=== PATIENT | male | born 1980 | race Caucasian/White ===

== ENCOUNTER 2025-07-14 06:06 | Day surgery (SDC) | payer BC ==
[2025-07-14] MEDS: Ringers Lactate 1,000 ML IV ONE (06:50)
[2025-07-14] MEDS ORDERED: GLYCOPYRROLATE 0.2 MG/ML SYR ONE ×2 (07:46→09:09)
[2025-07-14] MEDS ORDERED: ROCURONIUM 50 MG/5 ML VIAL IV ONE (07:46)
[2025-07-14] MEDS ORDERED: ONDANSETRON 4 MG/2 ML VIAL ONE (07:46)
[2025-07-14] MEDS ORDERED: LIDOCAINE 1% MPF 5 ML VIAL ONE (07:46)
[2025-07-14 07:47] LABS: Absolute Lymphocytes (CBC) 2.6 K/uL (0.7-4.9); Hematocrit 43.4 % (39.6-49.0); Hemoglobin 15.0 g/dL (13.6-17.9); MCH 30.4 pg (27.0-35.0); MCHC 34.6 g/dL (32.0-36.0); MCV 88.0 fL (80-100); MPV 7.7 fL (7.6-11.3); Nucleated RBC Absolute Count 0.0 (0-0); Nucleated Red Blood Cells % 0.1 % (0-0); RBC Red Blood Cell Count 4.94 M/uL (4.33-5.43); White Blood Count 8.40 thou/uL (4.3-10.9)
[2025-07-14] MEDS ORDERED: FENTANYL CITR 100 MCG/2 ML ONE (07:47)
[2025-07-14] MEDS ORDERED: MIDAZOLAM HCL 2 MG/2 ML INJ ONE (07:47)
--- NOTE | 2025-07-14 08:01 | RAD REPORT ---
EXAMINATION: TWO VIEW CHEST XR CLINICAL INDICATION: PRE-OP TECHNIQUE: 2 views of the chest was performed. COMPARISON: No prior exam. FINDINGS: The lungs are well inflated and clear. The heart is normal in size. No displaced fractures evident. IMPRESSION: No acute or significant abnormalities.
[2025-07-14 08:06] LABS: ALT/SGPT 400 U/L (16-61); AST/SGOT 141 U/L (15-37); Albumin 3.3 g/dL (3.4-5.0); Albumin/Globulin Ratio 0.9 (1.1-1.8); Alkaline Phosphatase 133 U/L (45-117); Anion Gap 8.9 mEq/L (5.0-15.0); BUN Blood Urea Nitrogen 19 mg/dL (7-18); Bilirubin Indirect, Calculated 0.1 mg/dL (0.2-0.8); Globulin 3.5 g/dL (2.3-3.5); Glucose Level 101 mg/dL (74-106); Lipase 63 U/L (13-75); Potassium 3.9 mEq/L (3.5-5.1)
[2025-07-14] MEDS: CEFOXITIN SODIUM 1 GM/VIAL ONE (08:10)
[2025-07-14] MEDS ORDERED: KETOROLAC 30 MG/ML INJ ONE (08:49)
[2025-07-14] MEDS ORDERED: NEOSTIGMINE 1 MG/ML -10 ML VIAL ONE (09:09)
[2025-07-14] MEDS ORDERED: MORPHINE 10 MG/ML VIAL ONE (09:22)
[2025-07-14] MEDS: HYDROMORPHONE HCL 1 MG/ML INJ ONE (09:54)
--- NOTE | 2025-07-14 10:16 | OP ---
Date of Procedure: 07/14/2025 Surgeon: Abilio Anaya MD Preoperative Diagnoses: Acute cholecystitis, symptomatic cholelithiasis, hepatic disease, umbilical hernia. Postoperative Diagnoses: Acute cholecystitis, symptomatic cholelithiasis, hepatic disease, umbilical hernia. Procedures: Laparoscopic cholecystectomy. Umbilical hernia repair, open, 2 cm. Anesthesia: General plus local. Complications: None. Specimen: Gallbladder and the umbilical hernia sac. Complications: None. Estimated Blood Loss: Less than 10 cc. Indications: This is a case of a 44-year-old patient who came to us with epigastric right upper quad rant pain, recurrence, diagnosed with acute cholecystitis, symptomatic cholelithiasis. The patient a lso has umbilical hernia. He wants repair at the same time, irreducible, tender. The benefits, alte rnatives, and risks of laparoscopic, possible open cholecystectomy, and open hernia repair fully expl ained, which include, but not limited to, infection, bleeding, damage to adjacent structures, anesthe nahed complication, choledocholithiasis, bile leak, pancreatitis, HI, and even . He also understa nds this may not relieve any symptoms, he might need more than one surgical intervention. He underst ood also the chance of recurrence of hernia. He signed a consent. Description Of Procedure: The patient was brought to the operating room, placed in supine position. Anesthesia was induced without complication. Abdominal area was prepped and draped in a sterile fas hion. A time-out was called. Local anesthesia was applied in every incision and first incision was done in the supraumbilical region in a curved fashion. Incision was carried down until we found the hernia sac. We removed the hernia sac from umbilical skin and then cleaned the hernia sac, cleaned t he fascial edges. We placed Vicryl #1 inside of the fascia. Jeannette trocar was carefully introduced. Pneumoperitoneum was obtained. I placed three trocars, 5 mm each one of them, one in the epigastri c area, two in the right upper quadrant using same technique which consisted of local anesthetic, sha rp incision of the skin, introduction of the trocars under direct vision. This allowed me to put a g rasper in the fundus of the gallbladder. There were omental adhesions to the gallbladder that needed to be removed with the LigaSure. Once we have that, we were able to identify the infundibulum. The gallbladder was retracted in the inferolateral fashion exposing the triangle of Calot, obtaining cri tical view. Cystic duct and cystic artery were clearly isolated and freed circumferentially and a co nnection between those and the gallbladder were clearly identified. I proceeded to ligate those by u sing at least 3 clips proximal, and 1 clip proximal, ligation in the middle. Same was done with the cystic artery. No bile leak. No bleeding. The gallbladder was removed from the liver using Bovie cauterizer and removed from the abdominal cavity using an EndoCatch through the umbilical incision. Area was inspected once again. No bile leak. No bleeding. At that moment, I proceeded to remove t he trocars under direct vision, deflated pneumoperitoneum, closed the fascia with #1 Vicryl, irrigate d subcutaneous tissue, closed that with 3-0 chromic, and the skin in a subcuticular fashion with 3-0 chromic and Steri-Strips on top. Sponge counts and instrument counts were correct. Also umbilical h ernia was closed with #1 Vicryl. At that moment, then I closed the skin, as mentioned above. Then, after the gallbladder was removed, we made sure there was no bleeding or bile leak. We then closed t he fascia once again of umbilical hernia with #1 Vicryl, irrigated subcutaneous tissue, closed that w ith 3-0 chromic and the skin in subcuticular fashion with Monocryl. Sponge counts and instrument cou nts were correct. Steri-Strips placed over the area. The patient on his way to recovery in stable c ondition. URBANO/IRAM Voice ID: [id number] Report ID: [id number]
--- NOTE | 2025-07-14 10:19 | P.BOP ---
Preoperative diagnosis: acute cholecystiti,symp cholelithiasis, tender umbilical hernia Postoperative diagnosis: same Primary procedure: LAparoscopic cholecystectomy Secondary procedure: Open umbilical hernia repair 2cm Estimated blood loss: <10cc Specimen: gallbladder, hernia sac Findings: as above Anesthesia: General Complications: None Transferred to: Recovery Room Condition: Good
--- NOTE | 2025-07-14 10:22 | DS ---
Diagnoses: Acute cholecystitis, symptomatic cholelithiasis, umbilical hernia. Procedures: Laparoscopic cholecystectomy. Umbilical hernia repair. Condition: Stable. Disposition: Home. Activity: As tolerated. No heavy lifting. Discharge Instructions: Follow up in my office in 1 week. Call for appointment at [phone]. Keep a des dry for 48 hours, then may shower. Keep Steri-Strips intact. URBANO/IRAM Voice ID: [id number] Report ID: [id number]
[2025-07-14] MEDS: HYDROCODONE/APAP 10/325 TAB ONE (10:28)
[2025-07-14 11:17] VITALS: BP 130/70; TEMP 97; O2SAT 96
== END 2025-07-14 11:05 | disposition home or self-care (01) ==
LOC: OR 06:06
PROVIDERS: ATTEND Surgery
PROC: 0FT44ZZ Resection of Gallbladder, Percutaneous Endoscopic Approach (ICD-10-PCS; principal; 2025-07-14 08:10)
DX: K80.10 Calculus of gallbladder with chronic cholecystitis without obstruction (principal); K42.9 Umbilical hernia without obstruction or gangrene
CPT/HCPCS: 93005; 85025; 80048; 36415; 80076; 88302; 88304; 83690; 71046; 47562; J2704; J2710; J2003; J2250; J3010; J1100; J1171; J0694; J2405; J7120